=== PATIENT | male | born 1950 | race Caucasian/White ===

== ENCOUNTER → 2016-10-30 | Outpatient (CLI) | payer BC ==
[~2016-10-30] MED LIST: ATOR10TA82 PO; CLC/300 PO; HYDR25TA4 PO; LPT10 PO; METF500T PO; METO-217 PO; TPRSR/50 PO; WARF-284 PO; WARF7.5T PO
[2016-10-30 17:47] LABS: BLOOD UREA NITROGEN 17 mg/dl (7-18); BUN/CREATININE RATIO 15.5 (10-20); CALCIUM 8.7 mg/dl (8.5-10.1); CARBON DIOXIDE 30 mmol/L (21-32); CHLORIDE 102 mmol/L (98-107); GLUCOSE 117 mg/dl (70-99); POTASSIUM 3.7 mmol/L (3.5-5.1); SODIUM 141 mmol/L (136-145)
[2016-10-30 17:50] LABS: CHOLESTEROL 108 mg/dl (0-200); CHOLESTEROL/HDL RATIO 2.2; HDL CHOLESTEROL 49 mg/dl; LDL CHOLESTEROL CALCULATED 45 mg/dl; TRIGLYCERIDES 72 mg/dl (0-150); VERY LOW DENSITY LIPOPROT CALC 14 mg/dl
[2016-10-31 06:07] LABS: ESTIMATED AVERAGE GLUCOSE 154 mg/dl; HA1C FLAG Normal (Normal)
== END | disposition home or self-care (01) ==
LOC: C.LABPVFM 15:14
PROVIDERS: ATTEND Nurse Practitioner
DX: E11.9 Type 2 diabetes mellitus without complications (principal); I10 Essential (primary) hypertension

== ENCOUNTER 2017-02-13 15:11 | Emergency (ER) | payer BC ==
[~2017-02-13] VITALS: Ht 182.9 cm; Wt 98.0 kg
[~2017-02-13 15:11] MED LIST changes: -CLC/300 PO; -HYDR25TA4 PO; -LPT10 PO; -METF500T PO; -TPRSR/50 PO; -WARF7.5T PO
[2017-02-13 15:18] VITALS: TEMP 37; Ht 182.9 cm; Wt 98.0 kg
[2017-02-13] MEDS ORDERED: LIDOCAINE/EPINEPHRINE 1% 20 ML VIAL INFIL ONE (15:30)
[2017-02-13] MEDS ORDERED: DIPHTHERIA/TETANUS/PERTUSSIS 0.5 ML SYR/VIAL IM. ONE (15:30)
[2017-02-13] MEDS ORDERED: METF500T PO (15:41)
[2017-02-13] MEDS ORDERED: HYDR25TA4 PO (15:41)
[2017-02-13] MEDS ORDERED: WARF7.5T PO ×2 (16:01)
[2017-02-13] MEDS ORDERED: LPT10 PO (16:01)
[2017-02-13] MEDS ORDERED: TPRSR/50 PO (16:01)
[2017-02-13] MEDS ORDERED: CLC/300 PO (16:48)
--- NOTE | 2017-02-13 16:51 | EMERGENCY ROOM VISIT NOTE ---
ED Visit Note First contact with patient: 15:23 CHIEF COMPLAINT: Right hand laceration HISTORY OF PRESENT ILLNESS: Patient is a [id number] 66-year-old white male who presents to the emergency department for evaluation of a laceration to the dorsal aspect of his right hand. He was using a hob grinder to sharpen his lawnmower blade. He set the hob grinder down but the blade was still running, and he accidentally hit his right hand off of the running blade, causing the laceration described below. Patient is on Coumadin and has had difficulty getting the bleeding controlled. His INR is typically between 2 and 2.5. He denies weakness or numbness of the hand or fingers. REVIEW OF SYSTEMS: Review of systems as per HPI. All other systems reviewed were negative. At least 6 systems reviewed. PMH: Electronic medical records are reviewed and summarized as above/below. See Problem List. Patient was unsure of his last tetanus, but old records show that he got a tetanus when he had a scalp laceration in 2016. SOCIAL HISTORY: Patient lives at home with his . PHYSICAL EXAM: Vital Signs: Reviewed Nurse's notes. There is a 4 cm long laceration on the dorsal aspect of the right thumb, running horizontally, proximal to the MCP joint. There is brisk bleeding noted. The edges are gaping widely apart. There is no foreign material in the wound and it looks clean. No deep structures such as tendons or nerves are seen in the base of the wound, however wound is palpated, and first metacarpal is palpable in the base of the wound with forceps and with my finger, and there is a palpable defect consistent with the hob grinder blade. Extension and flexion of the thumb is full and strong one isolated at the MCP and IP joint. Sensation to pain and light touch is intact. EMERGENCY DEPARTMENT COURSE: The hand was prepped with Betadine and draped sterilely. 1% lidocaine with epinephrine was infiltrated into the wound. Wound is irrigated copiously with normal saline solution. I did use a blood pressure cuff on the forearm to act as a tourniquet for less than 10 minutes at 200 mmHg. This did allow for adequate hemostasis in order to close the wound. Wound was reapproximated using a combination of simple and vertical mattress 4- 0 nylon sutures, a total of 10 were used. Afterwards, there was some slight oozing from the suture line, but otherwise bleeding was controlled. X-rays of the right thumb were taken. Findings are as noted below, with bony laceration noted. Bulky, compressive dressing was applied. The patient's old records are reviewed. He has a history of a foot ulcer, which apparently developed into an osteomyelitis at one point. He reports a history of MRSA although none of our cultures documented such. Nonetheless, he will be placed on antibiotics given the nature of the laceration and the injury to the bone. He was given clindamycin 300 mg orally in the emergency department. He fortunately does not appear to have any evidence for extensor tendon, nerve or vascular injury. He was instructed on close follow-up with orthopedics and with the wound care center, as well as with his Coumadin clinic. RIGHT FINGER(S) MIN 2 VIEWS ROUTINE CLINICAL HISTORY: right thumb, lac to dorsal 1st metacarpal Right trauma COMPARISON: None. DISCUSSION: Soft tissue disruption adjacent to the first metacarpal. No focal bony laceration seen dorsally as well as dorsal laterally. No evidence of dislocation. Moderate degenerative change. The disc IMPRESSION: Soft tissue disruption combined with superficial focal bony lacerations of the mid shaft first metacarpal. Problem List Medical Problems: (1) Anticoagulants,Lt,Current Use Status: Chronic (2) Atrial Fibrillation Status: Chronic (3) Bleeding Status: Resolved (4) Diab Luly Wo Compl, Type Ii Or Unspec Type, Not Uncntrld Status: Chronic (5) Esophageal Reflux Status: Chronic (6) Hypertension Nos Status: Chronic (7) Laceration of scalp Status: Resolved (8) Osteomyelitis of right foot Status: Resolved Current/Historical Medications Scheduled Atorvastatin (Atorvastatin Calcium), 10 MG PO DAILY Clindamycin HCl (Clindamycin HCl), 1 CAP PO TID Hydrochlorothiazide (Hctz), 25 MG PO QAM Metformin Hcl (Glucophage), 500 MG PO UD Metoprolol Succinate (Metoprolol Succinate ER), 50 MG PO DAILY Warfarin Sodium (Coumadin), 3.75 MG PO [id number] Warfarin Sodium (Coumadin), 7.5 MG PO WK Allergies Coded Allergies: No Known Allergies (Verified , 11/30/15) Vital Signs Date Time Temp Pulse Resp B/P Pulse Ox O2 Delivery O2 Flow Rate FiO2 02/13/17 17:13 76 18 121/76 97 02/13/17 15:18 37.0 85 18 130/75 96 Room Air Medications Administered Medications (Trade) Dose Ordered Sig/Daniele Route Start Time Stop Time Status Last Admin Dose Admin Clindamycin HCl (Cleocin Cap) 300 mg ONE ONCE PO 02/13/17 17:00 02/13/17 17:01 DC 02/13/17 16:58 300 MG Departure Information Impression Primary Impression: Laceration of right thumb with complication Prescriptions Clindamycin HCl (Clindamycin HCl) 300 Mg Cap 1 CAP PO TID for 10 Days, #30 CAP Prov: Jania Guerra PA 02/13/17 Referrals Ana No C.R.N.P (PCP) Micah Joyner D.O. Patient Instructions My [facility] Additional Instructions Keep dressing placed today intact for 24 hours. May reinforce if necessary. Move the entire dressing tomorrow, clean the wound gently with mild soap and water and apply antibiotic ointment. Keep covered with a dressing until wound is no longer draining. Change the dressing daily, or more often if it becomes saturated or soiled. Suture removal in 14 days. Seek immediate medical attention for any signs of infection (increasing redness , swelling, drainage). Ice and elevate for swelling and pain. Tylenol 1000 mg every 6 hrs for pain. Clindamycin 300 m tablet 3 times daily for 10 days. Follow-up with [facility]-call their office tomorrow to make an appointment. Tell them you were seen in the emergency department and were instructed to call them for follow-up. Call the Coumadin clinic tomorrow. Tell them you were started on clindamycin for your injury and make arrangements to have your INR monitored. Follow-up with the wound care center next week for recheck of your laceration. They can remove your sutures in 2 weeks.
[2017-02-13] MEDS ORDERED: CLINDAMYCIN HCL 150 MG CAP PO ONE (17:00)
[2017-02-13 17:13] VITALS: BP 121/76; PULSE 76; O2SAT 97
--- NOTE | 2017-02-13 17:57 | EMERGENCY ROOM VISIT NOTE ---
ED Visit Note First contact with patient: 16:40 I have personally evaluated and examined this patient. I agree with assessment and plan of Erin Guerra PA-C.
== END 2017-02-13 17:14 | disposition home or self-care (01) ==
LOC: C.EDB 15:14 → C.EDD 17:14
DX: S61.011A Laceration without foreign body of right thumb without damage to nail, initial encounter (principal); W28.XXXA Contact with powered lawn mower, initial encounter; I48.91 Unspecified atrial fibrillation; E11.9 Type 2 diabetes mellitus without complications; I10 Essential (primary) hypertension; K21.9 Gastro-esophageal reflux disease without esophagitis; Z86.14 Personal history of Methicillin resistant Staphylococcus aureus infection; Z86.19 Personal history of other infectious and parasitic diseases; Z79.01 Long term (current) use of anticoagulants; Z79.84 Long term (current) use of oral hypoglycemic drugs; Z79.899 Other long term (current) drug therapy

== ENCOUNTER → 2017-05-07 | Outpatient (CLI) | payer BC ==
[~2017-05-07] MED LIST changes: -ATOR10TA82 PO; +HYDR25TA4 PO; +LPT10 PO; +METF500T PO; -METO-217 PO; +TPRSR/50 PO; -WARF-284 PO; +WARF7.5T PO
[2017-05-07 12:47] LABS: ESTIMATED AVERAGE GLUCOSE 166 mg/dl; HA1C FLAG Normal (Normal)
[2017-05-07 13:09] LABS: BLOOD UREA NITROGEN 18 mg/dl (7-18); CALCIUM 8.4 mg/dl (8.5-10.1); CARBON DIOXIDE 30 mmol/L (21-32); CHLORIDE 105 mmol/L (98-107); CREATININE 0.92 mg/dl (0.60-1.40); GLUCOSE 141 mg/dl (70-99); POTASSIUM 3.7 mmol/L (3.5-5.1); SODIUM 140 mmol/L (136-145)
== END | disposition home or self-care (01) ==
LOC: C.LABPVFM 09:01
PROVIDERS: ATTEND Nurse Practitioner
DX: I10 Essential (primary) hypertension (principal); E11.9 Type 2 diabetes mellitus without complications

== ENCOUNTER → 2017-07-09 | Outpatient (CLI) | payer BC ==
--- NOTE | 2017-07-09 12:47 | DIAGNOSTIC IMAGING REPORT ---
(RENAL)RETROPERITONEA COMP HISTORY: Hematuria R31.9 [id number] COMPARISON: None. FINDINGS: Right kidney: Maximum dimension 11.7 cm. No evidence for hydronephrosis. Normal corticomedullary differentiation and cortical thickness. Left kidney: Maximum dimension 10.9 cm. No evidence for hydronephrosis. Normal corticomedullary differentiation and cortical thickness. Bladder: No bladder wall thickening. The bilateral ureteral jets were identified. IMPRESSION: Normal study The above report was generated using voice recognition software. It may contain grammatical, syntax or spelling errors. Electronically signed by: Yuniel Viera M.D. 07/09/2017 12:45 PM Dictated Date/Time: 07/09/2017 12:45 PM
== END | disposition home or self-care (01) ==
LOC: C.ULTR 12:15
PROVIDERS: ATTEND Family Medicine
DX: R31.9 Hematuria, unspecified (principal)

== ENCOUNTER → 2017-11-07 | Outpatient (CLI) | payer BC ==
[2017-11-07 13:27] LABS: BLOOD UREA NITROGEN 21 mg/dl (7-18); CALCIUM 8.9 mg/dl (8.5-10.1); CARBON DIOXIDE 28 mmol/L (21-32); CREATININE 1.03 mg/dl (0.60-1.40); GLUCOSE 142 mg/dl (70-99); POTASSIUM 4.1 mmol/L (3.5-5.1); SODIUM 138 mmol/L (136-145)
[2017-11-07 13:32] LABS: CHOLESTEROL 108 mg/dl (0-200); LDL CHOLESTEROL CALCULATED 44 mg/dl
== END | disposition home or self-care (01) ==
LOC: C.LABPVFM 08:56
PROVIDERS: ATTEND Nurse Practitioner
DX: I48.91 Unspecified atrial fibrillation (principal); I10 Essential (primary) hypertension; E11.9 Type 2 diabetes mellitus without complications

== ENCOUNTER → 2018-03-17 | Outpatient (CLI) | payer BC ==
[2018-03-17 17:36] LABS: INR 2.3 (0.9-1.1)
== END | disposition home or self-care (01) ==
LOC: C.LABPVFM 12:02
PROVIDERS: ATTEND Nurse Practitioner
DX: Z79.01 Long term (current) use of anticoagulants (principal); Z51.81 Encounter for therapeutic drug level monitoring; R58 Hemorrhage, not elsewhere classified

== ENCOUNTER → 2018-03-17 | Outpatient (CLI) | payer BC ==
--- NOTE | 2018-03-17 13:34 | DIAGNOSTIC IMAGING REPORT ---
L VENOUS DOPP LOWER EXT UNILAT CLINICAL HISTORY: 67 years-old Male presenting with Z79.01,R22.40,R58. TECHNIQUE: Real-time grayscale and color and spectral Doppler ultrasound imaging of the veins of the left lower extremity was performed. Compression and augmentation were also utilized. COMPARISON: None. FINDINGS: Left: Common femoral vein: Patent. Greater saphenous vein: Patent. Deep femoral vein: Patent. Femoral vein: Patent. Popliteal vein: Patent. Calf veins: Patent. Other: At the site of clinical interest in the medial mid calf, a hypoechoic 2.0 x 0.8 x 1.4 cm mass appears to be centered in the subcutaneous fat. No hyperemia peripherally. No vascularity on color Doppler internally. IMPRESSION: 1. No evidence of deep venous thrombosis. 2. Hypoechoic mass in the medial mid calf at the site of clinical interest represent a hematoma. This could be followed to resolution with ultrasound as a soft tissue mass or lymph node is difficult to exclude but considered unlikely. Electronically signed by: Eddy Silveira M.D. 03/17/2018 1:33 PM Dictated Date/Time: 03/17/2018 1:31 PM
== END | disposition home or self-care (01) ==
LOC: C.ULTRBC 12:56
PROVIDERS: ATTEND Nurse Practitioner
DX: R58 Hemorrhage, not elsewhere classified (principal); R22.40 Localized swelling, mass and lump, unspecified lower limb; Z79.01 Long term (current) use of anticoagulants

== ENCOUNTER 2023-09-11 11:08 | Observation (INO) ==
[2023-09-11 11:56] LABS: Hematocrit (blood only) 47.2 % (42.0-52.0); Hemoglobin 16.1 g/dl (14.0-18.0); Mean Corpuscular Hemoglobin 29.8 pg (25.0-34.0); Mean Corpuscular Hgb Conc 34.1 g/dL (32.0-36.0); Mean Corpuscular Volume 87.2 fL (80.0-100.0); Mean Platelet Volume 9.3 fL (9.4-12.4); Platelet Count 201 K/uL (130-400); RDW Coefficient of Variation 13.7 % (11.5-14.5); RDW Standard Deviation 43.8 fL (36.4-46.3); Red Blood Count 5.41 M/uL (4.70-6.10); White Blood Count 6.23 K/ul (4.8-10.8)
[2023-09-11 12:12] LABS: Albumin Level 3.9 gm/dl (3.4-5.0); Bilirubin,Total 0.7 mg/dl (0.2-1.0); Calcium 8.8 mg/dl (8.6-10.3); Potassium 3.7 mmol/L (3.5-5.1)
[2023-09-11 12:18] LABS: Albumin Globulin Ratio 1.1 (0.9-2); BUN Creatinine Ratio 19.8 (10-20); Creatinine Clr Calc Pharmacy 86.6 ml/min; Est GFR (African American) 90.5 ml/min; Est GFR (Non-African American) 78.1 ml/min; Globulin 3.4 gm/dl (2.5-4.0); Total Protein 7.3 gm/dl (6.0-8.3)
[2023-09-11 12:25] LABS: INR 2.6 (0.9-1.1); Partial Thromboplastin Ratio 1.5; Prothrombin Time 26.7 Seconds (9.0-12.0)
[2023-09-11 12:30] LABS: Partial Thromboplastin Time 42.7 Seconds (21.0-31.0)
--- NOTE | 2023-09-11 14:40 | Emergency Department Note ---
ED Provider Note NAME: ANASTACIO LACKEY AGE: 73 SEX: M ARRIVES VIA: Walk-In INFORMANT: Patient ED PROVIDER(S): Hasmukh Amato MD CHIEF COMPLAINT: PLAN: Disposition: MEDICAL DECISION MAKING: Summary Triage Nursing notes reviewed and agree them. Prior/external medical records reviewed Vital Signs: reviewed Differential diagnosis: .dd ER treatment provided: See below. Diagnostics interpreted by me: ECG: None Cardiac Monitoring: An order for continuous cardiac monitoring was placed and demonstrated Laboratory studies: See below Imaging studies: See below Consultation(s): None HPI: ROS: See above HPI for pertinent positives & negatives. A total of 10 systems reviewed and were otherwise negative. VITALS:See Below PHYSICAL EXAMINATION: ED COURSE: Times/Reassessments: Procedures: None PDMP: Reviewed and no issues Critical Care: None Hasmukh Amato MD Past Med/Surg History Medical History Acquired deformity of right foot Fall from tree Smokeless tobacco use Surgical History No history of previous surgery Family History Sister Breast cancer Brother Myocardial infarction Denies family history of Ovarian cancer Prostate cancer Colorectal cancer Social History (Updated 07/18/23 @ 09:17 by Aminata Estes LPN) Smoking Status: Current every day smoker Tobacco Type: Smokeless Tobacco (Dip or Chew) Second Hand Exposure: No; Do You Dip or Chew Tobacco: No; Hx Alcohol Use: Yes Alcohol type: beer Alcohol Intake Frequency: Monthly or Less Hx Substance Use: No Preferred Language: Turkish Communication Ability: Effective Visual Impairment: Limited Hearing Ability: Normal Flatwork Feeder Required: No Beliefs That Will Affect Care: None marital status: Current Living Situation: Spouse current occupational status: retired How many Children do You have: 2 Feels Safe at Home: Yes Childhood Exposure to Second-Hand Smoke: No Diet: regular caffeine: Yes during the past year weight has: remained stable Dental Care, Regularly: No Physical Activity Frequency: Daily Seatbelt Use: always Sunscreen Use: Yes (sometimes ) Assistive Devices: Glasses Allergies Allergies Allergy/AdvReac Type Severity Reaction Status Date / Time No Known Allergies Allergy Verified 07/18/23 09:11 Home Meds Home Medications Medication Instructions Recorded Confirmed warfarin 7.5 mg tablet See Rx Instructions PO .COMPLEX 09/14/19 07/18/23 Previous Rx's Medication Instructions Recorded blood-glucose meter (ModulusTouch #1 ea 02/21/22 Ultra2 Meter) lancets 33 gauge (OneTouch Delica #100 ea 02/21/22 Lancets) atorvastatin 10 mg tablet 10 mg PO DAILY #90 tabs 10/26/22 lisinopril 5 mg tablet 5 mg PO DAILY #90 tabs 10/26/22 metoprolol succinate 50 mg 50 mg PO DAILY #90 tabs 10/26/22 tablet,extended release 24 hr lancets (Microlet Lancet) #100 ea 11/06/22 blood sugar diagnostic (ModulusTouch #100 ea 04/16/23 Ultra Test strips) metformin 500 mg tablet,extended 500 mg PO DAILY #90 tabs 04/16/23 release 24hr tamsulosin 0.4 mg capsule 0.4 mg PO DAILY #90 caps 04/16/23 clotrimazole 1 % topical cream 1 applic topical TID PRN rash #45 06/10/23 grams glimepiride 1 mg tablet 1 mg PO DAILY #90 tabs 07/18/23 dulaglutide 1.5 mg/0.5 mL 1.5 mg (0.5 mL) subcut Q7D 90 days 07/22/23 subcutaneous pen injector #6.5 mL Results & Data (ED) Vital Signs Vital Signs - 24 hr 09/11/23 11:14 Temperature 36.4 C L Temperature Source Temporal Artery Scan Pulse Rate 99 H Respiratory Rate 16 Blood Pressure 121/77 Blood Pressure Mean 91 Pulse Oximetry 96 Oxygen Delivery Method Room Air Sepsis Recent Fever Within 48 Hours Yes Sepsis New/Unexplained Change in Mental Status No Sepsis Action Taken by Nursing No Action Required Laboratory Data 09/11/23 11:45 09/11/23 11:45 Lab Results 09/11/23 Range/Units 11:45 WBC 6.23 (4.8-10.8) K/ul RBC 5.41 (4.70-6.10) M/uL Hgb 16.1 (14.0-18.0) g/dl Hct 47.2 (42.0-52.0) % MCV 87.2 (80.0-100.0) fL MCH 29.8 (25.0-34.0) pg MCHC 34.1 (32.0-36.0) g/dL RDW Std Deviation 43.8 (36.4-46.3) fL RDW Coeff of Giuseppe 13.7 (11.5-14.5) % Plt Count 201 (130-400) K/uL MPV 9.3 L (9.4-12.4) fL PT 26.7 H (9.0-12.0) Seconds INR 2.6 H (0.9-1.1) APTT 42.7 H* (21.0-31.0) Seconds PTT Ratio 1.5 Sodium 138 (136-145) mmol/L Potassium 3.7 (3.5-5.1) mmol/L Chloride 105 (98-107) mmol/L Carbon Dioxide 26 (21-32) mmol/L Anion Gap 7 (3-11) BUN 19 (6-23) mg/dl Creatinine 0.96 (0.6-1.4) mg/dl Est Cr Clr Drug Dosing 86.6 ml/min Est GFR ( Amer) 90.5 ml/min Est GFR (Non-Af Amer) 78.1 ml/min BUN/Creatinine Ratio 19.8 (10-20) Glucose 154 H (70-99(Fasting)) mg/dl Calcium 8.8 (8.6-10.3) mg/dl Total Bilirubin 0.7 (0.2-1.0) mg/dl AST 25 (13-39) U/L ALT 26 (7-52) U/L Alkaline Phosphatase 67 (34-104) U/L Total Protein 7.3 (6.0-8.3) gm/dl Albumin 3.9 (3.4-5.0) gm/dl Globulin 3.4 (2.5-4.0) gm/dl Albumin/Globulin Ratio 1.1 (0.9-2) Discharge Plan Visit Data Chief Complaint: Diarrhea Stated Complaint: DIARRHEA,BLOODY/DARK STOOL,DOC REF ED Provider: Hasmukh Amato Forms Stand Alone Forms: My [facility] Prescriptions Prescriptions: No Action (DME) blood-glucose meter [OneTouch Ultra2 Meter] Misc See Rx Instructions .Route Qty: 1 0RF Rx Instructions: test 1-2 times daily (DME) lancets [OneTouch Delica Lancets] 33 gauge misc See Rx Instructions .Route Qty: 100 0RF Rx Instructions: test 1-2 times daily atorvastatin 10 mg tablet 10 mg PO DAILY Qty: 90 3RF lisinopril 5 mg tablet 5 mg PO DAILY Qty: 90 3RF metoprolol succinate 50 mg tablet extended release 24 hr 50 mg PO DAILY Qty: 90 3RF (DME) lancets [Microlet Lancet] Misc See Rx Instructions .ROUTE .MEDSUPPLY Qty: 100 5RF Rx Instructions: As directed 2 times a day dulaglutide 1.5 mg/0.5 mL pen injector 1.5 mg subcut Q7D 90 Days Qty: 6.5 3RF (DME) OneTouch Ultra Test Strip See Rx Instructions .Route Qty: 100 3RF Rx Instructions: test 1-2 times daily E11.9 tamsulosin 0.4 mg capsule 0.4 mg PO DAILY Qty: 90 3RF metformin 500 mg tablet extended release 24hr 500 mg PO DAILY Qty: 90 3RF glimepiride 1 mg tablet 1 mg PO DAILY Qty: 90 3RF warfarin 7.5 mg tablet See Rx Instructions PO .COMPLEX Rx Instructions: PO ; MANAGED BY DR. REBOLLEDO clotrimazole 1 % cream 1 applic topical TID PRN (Reason: rash) Qty: 45 2RF Referrals Referrals: Leonides Arriaga DO [Primary Care Provider] -
--- NOTE | 2023-09-11 15:39 | Electrocardiogram Report ---
Test Reason : Blood Pressure : / mmHG Vent. Rate : 090 BPM Atrial Rate : 000 BPM P-R Int : 000 ms QRS Dur : 084 ms QT Int : 336 ms P-R-T Axes : 000 005 -08 degrees QTc Int : 411 ms Atrial fibrillation Abnormal ECG When compared with ECG of 22-FEB-2012 07:19, Atrial fibrillation has replaced Sinus rhythm Confirmed by Franco Velasquez ([id number]) on 09/11/2023 3:38:48 PM Referred By: Confirmed By:Franco Velasquez
[2023-09-11] MEDS ORDERED: PANTOprazole 80 MG in DEXTROSE 5% 100 ML IV ONE (15:55)
[2023-09-11] MEDS ORDERED: PANTOPRAZOLE BOLUS/DRIP IV STA (15:55)
[2023-09-11] MEDS ORDERED: PANTOprazole 40 MG in DEXTROSE 5% MINI-B 100 ML IV SCH (16:15)
[2023-09-11 16:53] LABS: Adenovirus PCR Not Detected (NotDetected); Bordetella parapertussis PCR Not Detected (NotDetected); Bordetella pertussis PCR Not Detected (NotDetected); Chlamydia pneumoniae PCR Not Detected (NotDetected); Coronavirus 229E PCR Not Detected (NotDetected); Coronavirus CoV-2 (COVID19)PCR Not Detected (NotDetected); Coronavirus HKU1 PCR Not Detected (NotDetected); Coronavirus NL63 PCR Not Detected (NotDetected); Coronavirus OC43PCR Not Detected (NotDetected); Human Metapneumovirus PCR Not Detected (NotDetected); Influenza A PCR Not Detected (NotDetected); Influenza B PCR Not Detected (NotDetected); Mycoplasma pneumoniae PCR Not Detected (NotDetected); Parainfluenza Virus 1 PCR Not Detected (NotDetected); Parainfluenza Virus 2 PCR Not Detected (NotDetected); Parainfluenza Virus 3 PCR Not Detected (NotDetected); Parainfluenza Virus 4 PCR Not Detected (NotDetected); Respiratory Syncytial VirusPCR Not Detected (NotDetected); Rhinovirus/Enterovirus PCR Not Detected (NotDetected)
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
[2023-09-11 17:32] LABS: Adenovirus F 40/41 PCR Not Detected (NotDetected); Astrovirus PCR Not Detected (NotDetected); Cryptosporidium PCR Not Detected (NotDetected); Cyclospora cayetanensis PCR Not Detected (NotDetected); Entamoeba histolytica PCR Not Detected (NotDetected); Enteroaggregative E.coli(EAEC) Not Detected (NotDetected); Enteropathogenic E.coli (EPEC) Not Detected (NotDetected); Enterotoxigenic E.coli (ETEC) Not Detected (NotDetected); Giardia lamblia PCR Not Detected (NotDetected); Norovirus GI/GII PCR Not Detected (NotDetected); Plesiomonas shigelloides PCR Not Detected (NotDetected); Rotavirus A PCR Not Detected (NotDetected); Salmonella PCR Not Detected (NotDetected); Sapovirus PCR Not Detected (NotDetected); Shiga-like Toxin E.coli (STEC) Not Detected (NotDetected); Shigella/Enteroinvasive E.coli Not Detected (NotDetected); Vibrio cholerae PCR Not Detected (NotDetected); Vibrio species PCR Not Detected (NotDetected); Yersinia enterocolitica PCR Not Detected (NotDetected)
[2023-09-11 17:34] LABS: Campylobacter PCR DETECTED (NotDetected)
[2023-09-11 18:43] LABS: Hematocrit (blood only) 46.9 % (42.0-52.0); Hemoglobin 16.1 g/dl (14.0-18.0); Mean Corpuscular Hemoglobin 30.2 pg (25.0-34.0); Mean Corpuscular Hgb Conc 34.3 g/dL (32.0-36.0); Mean Platelet Volume 9.5 fL (9.4-12.4); Platelet Count 218 K/uL (130-400); RDW Coefficient of Variation 13.6 % (11.5-14.5); Red Blood Count 5.33 M/uL (4.70-6.10); White Blood Count 7.44 K/ul (4.8-10.8)
--- NOTE | 2023-09-11 21:13 | Emergency Department Note ---
History of Present Illness General Chief complaint: Diarrhea Stated complaint: DIARRHEA,BLOODY/DARK STOOL,DOC REF Time Seen by Provider: 09/11/23 14:37 History of Present Illness Provider Complaint: + melena Onset (ago): 1 day(s) Relieved By: + none Exacerbated By: + bowel movement Context: + anticoagulant use (Coumadin); no hemorrhoids, no rectal trauma or no alcohol abuse Associated symptoms: + abdominal pain and + nausea; no fever or no chills HPI Narrative: Diarrhea for 1 week. Home Medications Medication Instructions Recorded Confirmed Type warfarin 7.5 mg tablet See Rx Instructions PO .COMPLEX 09/14/19 09/11/23 History blood-glucose meter (OneTouch #1 ea 02/21/22 07/18/23 Rx Ultra2 Meter) lancets 33 gauge (OneTouch Delica #100 ea 02/21/22 07/18/23 Rx Lancets) lancets (Microlet Lancet) #100 ea 11/06/22 07/18/23 Rx blood sugar diagnostic (OneTouch #100 ea 04/16/23 07/18/23 Rx Ultra Test strips) clotrimazole 1 % topical cream 1 applic topical TID PRN rash #45 06/10/23 09/11/23 Rx grams atorvastatin 10 mg tablet 10 mg PO QAM 09/11/23 09/11/23 History glimepiride 1 mg tablet 1 mg PO QAM 09/11/23 09/11/23 History lisinopril 5 mg tablet 5 mg PO QAM 09/11/23 09/11/23 History metformin 500 mg tablet,extended 500 mg PO QAM 09/11/23 09/11/23 History release 24hr metoprolol succinate 50 mg 50 mg PO QAM 09/11/23 09/11/23 History tablet,extended release 24 hr tamsulosin 0.4 mg capsule 0.4 mg PO HS 09/11/23 09/11/23 History Allergies Allergy/AdvReac Type Severity Reaction Status Date / Time No Known Allergies Allergy Verified 09/11/23 15:50 Past Med/Surg History Medical History Traumatic subarachnoid hemorrhage Hypertension Type 2 diabetes mellitus Fall from tree Acquired deformity of right foot S/P combine accident years ago. Smokeless tobacco use Surgical History No history of previous surgery Family History Sister Breast cancer Brother Myocardial infarction Denies family history of Ovarian cancer Prostate cancer Colorectal cancer Social History Smoking Status: Current every day smoker Tobacco Type: Smokeless Tobacco (Dip or Chew) Second Hand Exposure: No; Do You Dip or Chew Tobacco: No; Hx Alcohol Use: Yes Alcohol type: beer Alcohol Intake Frequency: Monthly or Less Hx Substance Use: No Preferred Language: Mohawk Communication Ability: Effective Visual Impairment: Limited Hearing Ability: Normal Stabilizer Operator Required: No Beliefs That Will Affect Care: None marital status: Current Living Situation: Spouse current occupational status: retired How many Children do You have: 2 Feels Safe at Home: Yes Childhood Exposure to Second-Hand Smoke: No Diet: regular caffeine: Yes during the past year weight has: remained stable Dental Care, Regularly: No Physical Activity Frequency: Daily Seatbelt Use: always Sunscreen Use: Yes (sometimes ) Assistive Devices: Glasses Physical Exam 2 Vital Signs: Vital Signs - 24 hr 09/11/23 11:14 09/11/23 14:44 09/11/23 15:35 Temperature 36.4 C L Temperature Source Temporal Artery Sc an Pulse Rate 99 H 62 Pulse Rate [Right Finger] 83 Respiratory Rate 16 16 Respiratory Effort / Characteristics Non-Labored Respiratory Depth Normal Blood Pressure 121/77 Blood Pressure [Ri ght Arm] 128/81 Blood Pressure Anai n 91 Blood Pressure Anai n [Right Arm] 96 Pulse Oximetry 96 96 Oxygen Delivery Me thod Room Air Room Air Sepsis Recent Feve r Within 48 Hours Yes Sepsis New/Unexpla ined Change in Men artis Status No Sepsis Action Take n by Nursing No Action Required 09/11/23 15:37 09/11/23 16:39 Temperature Temperature Source Pulse Rate 91 H Pulse Rate [Right Finger] 74 Respiratory Rate 16 Respiratory Effort / Characteristics Respiratory Depth Blood Pressure Blood Pressure [Ri ght Arm] 134/62 Blood Pressure Anai n Blood Pressure Anai n [Right Arm] 86 Pulse Oximetry 97 Oxygen Delivery Me thod Room Air Sepsis Recent Feve r Within 48 Hours Sepsis New/Unexpla ined Change in Men artis Status Sepsis Action Take n by Nursing Physical Exam: Physical Exam GENERAL: She is oriented to person, place, and time. She appears well-developed and well-nourished. She does not appear distressed. HENT: Exam performed. -Head: Normocephalic and atraumatic. -Right Ear: External ear normal. No mastoid erythema -Left Ear: External ear normal. No mastoid erythema -Mouth/Throat: The oropharynx is clear and moist. No trismus in the jaw. No dental abscesses or uvula swelling. No oropharyngeal exudate or tonsillar abscesses. EYES: Conjunctivae and EOM are normal.Right eye exhibits no discharge. Left eye exhibits no discharge. No scleral icterus. NECK: Normal range of motion. Neck supple. No JVD present. No tracheal deviation and normal range of motion present. CV: Normal rate, regular rhythm, normal heart sounds and intact distal pulses. There is no peripheral edema. Palpable radial pulses bue. PULM/CHEST: Effort normal and breath sounds normal. No respiratory distress. No stridor. She has no wheezes. She has no rales. -Chest Wall: She exhibits no tenderness. ABD: The abdomen is soft. Bowel sounds are normal. She has no distension. No mass is present. There is no tenderness. There is no rebound, no guarding, no Chowdary's sign and no tenderness at McBurney's point. Rovsig negative Rectal: Melanotic stool Hemoccult positive. MUSC/SKEL: Normal range of motion. There is no peripheral edema, tenderness or deformity. NEURO: Motor and sensation grossly intact. SKIN: Skin is warm and dry. She is not diaphoretic. PSYCH: She has a normal mood and affect. Behavior is normal. Judgment and thought content normal. Course Course 1437: The patient was evaluated in room A11A. A complete history and physical exam was performed Administered Medications Discontinued Medications Pantoprazole Sodium 80 mg/ (Dextrose) 120 mls @ 400 mls/hr IV NOW ONE Stop: 09/11/23 16:12 Last Infusion: 09/11/23 17:26 Dose: Infused Documented By: Admin: 09/11/23 16:46 Dose: 400 mls/hr Documented By: ASW Pantoprazole Sodium 40 mg/ (Dextrose) 100 mls @ 20 mls/hr IV Q5H [facility] Stop: 10/11/23 16:14 Last Admin: 09/11/23 18:22 Dose: Not Given Documented By: ASW Pantoprazole Sodium (Pantoprazole Bolus/Drip) 1 each IV NOW STA Stop: 09/11/23 15:56 Last Admin: 09/11/23 16:48 Dose: Not Given Documented By: QUENTINW Medical Decision Making Laboratory Data Attestation: I reviewed the patient's lab results. 09/11/23 18:20 09/11/23 11:45 Lab Results 09/11/23 09/11/23 09/11/23 Range/Units 11:45 15:35 16:04 WBC 6.23 (4.8-10.8) K/ul RBC 5.41 (4.70-6.10) M/uL Hgb 16.1 (14.0-18.0) g/dl Hct 47.2 (42.0-52.0) % MCV 87.2 (80.0-100.0) fL MCH 29.8 (25.0-34.0) pg MCHC 34.1 (32.0-36.0) g/dL RDW Std Deviation 43.8 (36.4-46.3) fL RDW Coeff of Giuseppe 13.7 (11.5-14.5) % Plt Count 201 (130-400) K/uL MPV 9.3 L (9.4-12.4) fL PT 26.7 H (9.0-12.0) Seconds INR 2.6 H (0.9-1.1) APTT 42.7 H* (21.0-31.0) Seconds PTT Ratio 1.5 Sodium 138 (136-145) mmol/L Potassium 3.7 (3.5-5.1) mmol/L Chloride 105 (98-107) mmol/L Carbon Dioxide 26 (21-32) mmol/L Anion Gap 7 (3-11) BUN 19 (6-23) mg/dl Creatinine 0.96 (0.6-1.4) mg/dl Est Cr Clr Drug Dosing 86.6 ml/min Est GFR ( Amer) 90.5 ml/min Est GFR (Non-Af Amer) 78.1 ml/min BUN/Creatinine Ratio 19.8 (10-20) Glucose 154 H (70-99(Fasting)) mg/dl Calcium 8.8 (8.6-10.3) mg/dl Total Bilirubin 0.7 (0.2-1.0) mg/dl AST 25 (13-39) U/L ALT 26 (7-52) U/L Alkaline Phosphatase 67 (34-104) U/L Total Protein 7.3 (6.0-8.3) gm/dl Albumin 3.9 (3.4-5.0) gm/dl Globulin 3.4 (2.5-4.0) gm/dl Albumin/Globulin Ratio 1.1 (0.9-2) POC Stool Occult Blood (Negative) Stl C. cayetanensis PCR Not Detected (NotDetected) Stool Rotavirus A PCR Not Detected (NotDetected) Stl Adenov F 40/41 PCR Not Detected (NotDetected) Stool Astrovirus (PCR) Not Detected (NotDetected) Stool Campylobacter PCR DETECTED A* (NotDetected) Stl C. diff Tox B Gene Negative Cdiff Gene (Neg) Stool Cryptosporidium PCR Not Detected (NotDetected) Stl E.coli Shiga Tox PCR Not Detected (NotDetected) Stl Enterotoxigenic E PCR Not Detected (NotDetected) Stool EPEC (PCR) Not Detected (NotDetected) Stool EAEC (PCR) Not Detected (NotDetected) Stl E. histolytica PCR Not Detected (NotDetected) Stool Giardia Lamblia PCR Not Detected (NotDetected) Stool Salmonella PCR Not Detected (NotDetected) Stool Sapovirus (PCR) Not Detected (NotDetected) Stl P. shigelloides PCR Not Detected (NotDetected) Stl Shigella/EIEC PCR Not Detected (NotDetected) St Y.enterocolitica PCR Not Detected (NotDetected) Stool Vibrio (PCR) Not Detected (NotDetected) Stl Vibrio cholerae PCR Not Detected (NotDetected) Stl Norovirus GI/GII PCR Not Detected (NotDetected) Adenovirus (PCR) Not Detected (NotDetected) B. pertussis DNA (PCR) Not Detected (NotDetected) B.parapertussis DNA PCR Not Detected (NotDetected) C. pneumoniae DNA (PCR) Not Detected (NotDetected) Coronavirus OC43 (PCR) Not Detected (NotDetected) Coronavirus HKU1 (PCR) Not Detected (NotDetected) Coronavirus 229E (PCR) Not Detected (NotDetected) SARS-CoV-2 (PCR) Not Detected (NotDetected) Coronavirus NL63 (PCR) Not Detected (NotDetected) Human Metapneumovir PCR Not Detected (NotDetected) Influenza Type A (PCR) Not Detected (NotDetected) Influenza Type B (PCR) Not Detected (NotDetected) M. pneumoniae (PCR) Not Detected (NotDetected) Parainfluenza 1 (PCR) Not Detected (NotDetected) Parainfluenza 2 (PCR) Not Detected (NotDetected) Parainfluenza 3 (PCR) Not Detected (NotDetected) Parainfluenza 4 (PCR) Not Detected (NotDetected) RSV (PCR) Not Detected (NotDetected) Entero/Rhino (PCR) Not Detected (NotDetected) 09/11/23 Range/Units 16:07 WBC (4.8-10.8) K/ul RBC (4.70-6.10) M/uL Hgb (14.0-18.0) g/dl Hct (42.0-52.0) % MCV (80.0-100.0) fL MCH (25.0-34.0) pg MCHC (32.0-36.0) g/dL RDW Std Deviation (36.4-46.3) fL RDW Coeff of Giuseppe (11.5-14.5) % Plt Count (130-400) K/uL MPV (9.4-12.4) fL PT (9.0-12.0) Seconds INR (0.9-1.1) APTT (21.0-31.0) Seconds PTT Ratio Sodium (136-145) mmol/L Potassium (3.5-5.1) mmol/L Chloride (98-107) mmol/L Carbon Dioxide (21-32) mmol/L Anion Gap (3-11) BUN (6-23) mg/dl Creatinine (0.6-1.4) mg/dl Est Cr Clr Drug Dosing ml/min Est GFR ( Amer) ml/min Est GFR (Non-Af Amer) ml/min BUN/Creatinine Ratio (10-20) Glucose (70-99(Fasting)) mg/dl Calcium (8.6-10.3) mg/dl Total Bilirubin (0.2-1.0) mg/dl AST (13-39) U/L ALT (7-52) U/L Alkaline Phosphatase (34-104) U/L Total Protein (6.0-8.3) gm/dl Albumin (3.4-5.0) gm/dl Globulin (2.5-4.0) gm/dl Albumin/Globulin Ratio (0.9-2) POC Stool Occult Blood Positive A (Negative) Stl C. cayetanensis PCR (NotDetected) Stool Rotavirus A PCR (NotDetected) Stl Adenov F 40/41 PCR (NotDetected) Stool Astrovirus (PCR) (NotDetected) Stool Campylobacter PCR (NotDetected) Stl C. diff Tox B Gene (Neg) Stool Cryptosporidium PCR (NotDetected) Stl E.coli Shiga Tox PCR (NotDetected) Stl Enterotoxigenic E PCR (NotDetected) Stool EPEC (PCR) (NotDetected) Stool EAEC (PCR) (NotDetected) Stl E. histolytica PCR (NotDetected) Stool Giardia Lamblia PCR (NotDetected) Stool Salmonella PCR (NotDetected) Stool Sapovirus (PCR) (NotDetected) Stl P. shigelloides PCR (NotDetected) Stl Shigella/EIEC PCR (NotDetected) St Y.enterocolitica PCR (NotDetected) Stool Vibrio (PCR) (NotDetected) Stl Vibrio cholerae PCR (NotDetected) Stl Norovirus GI/GII PCR (NotDetected) Adenovirus (PCR) (NotDetected) B. pertussis DNA (PCR) (NotDetected) B.parapertussis DNA PCR (NotDetected) C. pneumoniae DNA (PCR) (NotDetected) Coronavirus OC43 (PCR) (NotDetected) Coronavirus HKU1 (PCR) (NotDetected) Coronavirus 229E (PCR) (NotDetected) SARS-CoV-2 (PCR) (NotDetected) Coronavirus NL63 (PCR) (NotDetected) Human Metapneumovir PCR (NotDetected) Influenza Type A (PCR) (NotDetected) Influenza Type B (PCR) (NotDetected) M. pneumoniae (PCR) (NotDetected) Parainfluenza 1 (PCR) (NotDetected) Parainfluenza 2 (PCR) (NotDetected) Parainfluenza 3 (PCR) (NotDetected) Parainfluenza 4 (PCR) (NotDetected) RSV (PCR) (NotDetected) Entero/Rhino (PCR) (NotDetected) ECG Data Attestation: I personally reviewed and interpreted this ECG as follows: Rate (beats per minute): 90 Rhythm: atrial fibrillation Findings: no ST depression, no ST elevation or no prolonged QT MDM Narrative Cardiac monitoring: An order was placed for continuous cardiac monitoring. The monitor shows a rate of 90 with sinus rhythm interpreted by me Vital signs stable. INR therapeutic. Hemoglobin stable. Given the patient is having active melanotic stools with diarrhea Hemoccult positive and has an INR of 2.6 [facility] Stool cultures are pending. Dr. Saini's team will be notified. Impression & Plan Acute GI bleeding Discharge Plan Visit Data Chief Complaint: Diarrhea Stated Complaint: DIARRHEA,BLOODY/DARK STOOL,DOC REF ED Provider: Santiago Schmitt Discharge Problem: Acute GI bleeding Patient Disposition: Admitted As Inpatient
[2023-09-11] MEDS ORDERED: GLUCOSE 40% GEL 15 GM TUBE PO PRN (21:22)
[2023-09-11] MEDS ORDERED: TAMSULOSIN HCL 0.4 MG CAP PO SCH (21:22)
[2023-09-11] MEDS ORDERED: GLUCOSE 10 TAB/TUBE PO PRN (21:22)
[2023-09-11] MEDS ORDERED: CARBOHYDRATES FOR HYPOGLYCEMIA PO PRN (21:22)
[2023-09-11] MEDS ORDERED: DEXTROSE 50% 50 ML SYRINGE IV PRN (21:22)
[2023-09-11] MEDS ORDERED: GLUCAGON FOR INJ 1 MG VIAL SQ PRN (21:22)
[2023-09-11] MEDS: INSULIN ASPART PER UNIT CHARGE SC SCH (21:34)
[2023-09-12 00:39] LABS: Hematocrit (blood only) 44.5 % (42.0-52.0); Hemoglobin 15.2 g/dl (14.0-18.0); Mean Corpuscular Hemoglobin 30.1 pg (25.0-34.0); Mean Corpuscular Hgb Conc 34.2 g/dL (32.0-36.0); Mean Corpuscular Volume 88.1 fL (80.0-100.0); Mean Platelet Volume 9.4 fL (9.4-12.4); Platelet Count 202 K/uL (130-400); RDW Coefficient of Variation 13.6 % (11.5-14.5); RDW Standard Deviation 43.9 fL (36.4-46.3); Red Blood Count 5.05 M/uL (4.70-6.10); White Blood Count 7.69 K/ul (4.8-10.8)
[2023-09-12 07:23] LABS: Hemoglobin 15.6 g/dl (14.0-18.0); Mean Corpuscular Hemoglobin 30.5 pg (25.0-34.0); Mean Corpuscular Hgb Conc 34.7 g/dL (32.0-36.0); Mean Corpuscular Volume 87.9 fL (80.0-100.0); Mean Platelet Volume 9.2 fL (9.4-12.4); Platelet Count 219 K/uL (130-400); RDW Coefficient of Variation 13.4 % (11.5-14.5); RDW Standard Deviation 43.2 fL (36.4-46.3); Red Blood Count 5.12 M/uL (4.70-6.10)
[2023-09-12 07:39] LABS: Estimated Average Glucose 169 mg/dl; Hemoglobin A1C 7.5 % (4.5-5.6)
--- NOTE | 2023-09-12 08:08 | Hospitalist Progress Note ---
Date of Service September 12, 2023 Assessment & Plan (1) Campylobacter diarrhea: (2) Heme positive stool: (3) Atrial fibrillation: (4) Type 2 diabetes mellitus: Plan Wilbur Temple is a 73 year old male who presents to the ER with nausea and diarrhea since for 1.5 weeks [09/01), Comes to ER due to black stool Campylobacter diarrhea Patient reports this has been improving therefore defer antibiotic treatment. Heme positive stool: Unclear if black stool due to pepto-bismol taken on Saturday with heme positive stool from recent Campylobacter infection vs UGI bleed. Hold warfarin but no anemia to warrant vitamin K. Trend CBC. If stable can likely be discharged home tomorrow. Pantoprazole 40mg IV BID Recommend repeat as outpatient once diarrheal illness completely resolved to consider colonoscopy if remains positive. HGb 15.6 Atrial fibrillation: hold warfarin as above for anticoagulation Continue rate control with metoprolol Type 2 diabetes mellitus: Hemoglobin A1C 8.8 in March Taking metformin and glimepiride as outpatient Hold metformin while having diarrhea While inpatient will use Novolog: --Goal BSG Range: Low 110 mg/dL, High 140 mg/dL --Correction Factor: 45 mg/dL/unit --Carbohydrate ratio = 15 g/unit --BSGs ACHS if eating, q6h if npo VTE Prophylaxis - therapeutic on warfarin Diet - T2DM Disposition - observation to med/tele Admission and Anticipated Discharge Date Admission Date: September 11, 2023 Sarah Temple is a 73 year old male who presents to the ER with nausea and diarrhea since for 1.5 weeks [09/01]. He reports initially having chills with profuse diarrhea x6/day. The diarrhea is now improving and no longer having chills. Currently only having x2/day. Associated nausea but no vomiting. Tolerating full diet. Main reason for coming to the ER today is he started having black stool that started yesterday. He has never had this before. He denies any history of GI bleed (however chronic reflux esophagitis noted on problem list). He denies any heartburn or epigastric pain. He notes ventral abdominal cramping at the beginning of the illness although none for the last week. He talked to a nurse at his doctors office who recommended he comes to the ER for evaluation. He takes warfarin for chronic atrial fibrillation. His stool was heme positive in the ER. He notably took pepto-bismol for the first time on Saturday. Review of Systems Review of Systems: All systems reviewed & are unremarkable except as noted in HPI & below Physical Exam Constitutional: WD/WN, vitals as above Eyes: + anicteric sclerae; normal pupil size ENMT: external ear and nose normal, oropharynx normal Neck: trachea midline, no thyromegaly Respiratory: normal respiratory effort, lungs clear to auscultation Cardiovascular: Rate/Rhythm: regular rate and + irregularly irregular Heart Sounds: no murmur Extremities: normal capillary refill; no calf tenderness and no pedal edema Gastrointestinal (Abdomen): normal bowel sounds, soft, nontender, no hepatosplenomegaly Musculoskeletal: no cyanosis or clubbing, extremities motor strength 5/5 Skin: no rashes, warm and dry Neurologic: moves all extremities and awake; not confused Psychiatric: A+Ox3, euthymic affect Results & Data Results & Data Vital Signs (Past 12 Hours) Vital Signs Pulse Pulse Resp BP Pulse Ox O2 Del Method 09/12/23 07:02 100 H 09/12/23 01:33 81 20 126/79 96 Room Air 09/12/23 01:33 95 H 23 126/79 96 Room Air 09/12/23 00:00 85 09/11/23 20:20 85 18 145/92 H 96 Room Air Resident Activity Tracking Resident Involvement: Resident Care Provided Care Provided: Adult Hospital Medicine
[2023-09-12] MEDS: INSULIN ASPART PER UNIT CHARGE SC SCH (08:30)
[2023-09-12] MEDS ORDERED: METOPROLOL SUCC 50MG EXT REL TAB PO SCH (09:00)
[2023-09-12] MEDS ORDERED: lisinopril 5 MG TAB PO SCH (09:00)
[2023-09-12] MEDS ORDERED: ATORVASTATIN 10 MG TAB PO SCH (09:00)
--- NOTE | 2023-09-12 09:24 | Discharge Summary ---
Date of Service September 12, 2023 Admission HPI Per Admitting Provider Wilbur Temple is a 73 year old male who presents to the ER with nausea and diarrhea since for 1.5 weeks [09/01]. He reports initially having chills with profuse diarrhea x6/day. The diarrhea is now improving and no longer having chills. Currently only having x2/day. Associated nausea but no vomiting. Tolerating full diet. Main reason for coming to the ER today is he started having black stool that started yesterday. He has never had this before. He denies any history of GI bleed (however chronic reflux esophagitis noted on problem list). He denies any heartburn or epigastric pain. He notes ventral abdominal cramping at the beginning of the illness although none for the last week. He talked to a nurse at his doctors office who recommended he comes to the ER for evaluation. He takes warfarin for chronic atrial fibrillation. His stool was heme positive in the ER. He notably took pepto-bismol for the first time on Saturday. Admission Exam Per Admitting Provider Constitutional: WD/WN, vitals as above Eyes: + anicteric sclerae; normal pupil size ENMT: external ear and nose normal, oropharynx normal Neck: trachea midline, no thyromegaly Respiratory: normal respiratory effort, lungs clear to auscultation Cardiovascular: Rate/Rhythm: regular rate and + irregularly irregular Heart Sounds: no murmur Extremities: normal capillary refill; no calf tenderness and no pedal edema Gastrointestinal (Abdomen): normal bowel sounds, soft, nontender, no hepatosplenomegaly Musculoskeletal: no cyanosis or clubbing, extremities motor strength 5/5 Skin: no rashes, warm and dry Neurologic: moves all extremities and awake; not confused Psychiatric: A+Ox3, euthymic affect Principal Diagnosis Campylobacter diarrhea Discharge Exam Constitutional WD/WN, vitals as above Respiratory normal respiratory effort, lungs clear to auscultation Cardiovascular RRR, no murmur, no edema Rate/Rhythm: regular rate and regular rhythm Gastrointestinal (Abdomen) normal bowel sounds, soft, nontender, no hepatosplenomegaly Skin no rashes, warm and dry Discharge Data Allergies Allergy/AdvReac Type Severity Reaction Status Date / Time No Known Allergies Allergy Verified 09/11/23 15:50 Consultations 09/11/23 15:55 ED Decision to Admit Stat Ordered Studies Labs 09/11/23 09/11/23 09/11/23 11:45 15:35 16:04 WBC 6.23 RBC 5.41 Hgb 16.1 Hct 47.2 MCV 87.2 MCH 29.8 MCHC 34.1 RDW Std Deviation 43.8 RDW Coeff of Giuseppe 13.7 Plt Count 201 MPV 9.3 L PT 26.7 H INR 2.6 H APTT 42.7 H* PTT Ratio 1.5 Sodium 138 Potassium 3.7 Chloride 105 Carbon Dioxide 26 Anion Gap 7 BUN 19 Creatinine 0.96 Est Cr Clr Drug Dosing 86.6 Est GFR ( Amer) 90.5 Est GFR (Non-Af Amer) 78.1 BUN/Creatinine Ratio 19.8 Glucose 154 H POC Glucose Estimat Average Glucose Hemoglobin A1c Calcium 8.8 Total Bilirubin 0.7 AST 25 ALT 26 Alkaline Phosphatase 67 Total Protein 7.3 Albumin 3.9 Globulin 3.4 Albumin/Globulin Ratio 1.1 POC Stool Occult Blood Stl C. cayetanensis PCR Not Detected Stool Rotavirus A PCR Not Detected Stl Adenov F 40/41 PCR Not Detected Stool Astrovirus (PCR) Not Detected Stool Campylobacter PCR DETECTED A* Stl C. diff Tox B Gene Negative Cdiff Gene Stool Cryptosporidium PCR Not Detected Stl E.coli Shiga Tox PCR Not Detected Stl Enterotoxigenic E PCR Not Detected Stool EPEC (PCR) Not Detected Stool EAEC (PCR) Not Detected Stl E. histolytica PCR Not Detected Stool Giardia Lamblia PCR Not Detected Stool Salmonella PCR Not Detected Stool Sapovirus (PCR) Not Detected Stl P. shigelloides PCR Not Detected Stl Shigella/EIEC PCR Not Detected St Y.enterocolitica PCR Not Detected Stool Vibrio (PCR) Not Detected Stl Vibrio cholerae PCR Not Detected Stl Norovirus GI/GII PCR Not Detected Adenovirus (PCR) Not Detected B. pertussis DNA (PCR) Not Detected B.parapertussis DNA PCR Not Detected C. pneumoniae DNA (PCR) Not Detected Coronavirus OC43 (PCR) Not Detected Coronavirus HKU1 (PCR) Not Detected Coronavirus 229E (PCR) Not Detected SARS-CoV-2 (PCR) Not Detected Coronavirus NL63 (PCR) Not Detected Human Metapneumovir PCR Not Detected Influenza Type A (PCR) Not Detected Influenza Type B (PCR) Not Detected M. pneumoniae (PCR) Not Detected Parainfluenza 1 (PCR) Not Detected Parainfluenza 2 (PCR) Not Detected Parainfluenza 3 (PCR) Not Detected Parainfluenza 4 (PCR) Not Detected RSV (PCR) Not Detected Entero/Rhino (PCR) Not Detected 09/11/23 09/11/23 09/11/23 16:07 18:20 21:28 WBC 7.44 RBC 5.33 Hgb 16.1 Hct 46.9 MCV 88.0 MCH 30.2 MCHC 34.3 RDW Std Deviation 44.0 RDW Coeff of Giuseppe 13.6 Plt Count 218 MPV 9.5 PT INR APTT PTT Ratio Sodium Potassium Chloride Carbon Dioxide Anion Gap BUN Creatinine Est Cr Clr Drug Dosing Est GFR ( Amer) Est GFR (Non-Af Amer) BUN/Creatinine Ratio Glucose POC Glucose 119 H Estimat Average Glucose Hemoglobin A1c Calcium Total Bilirubin AST ALT Alkaline Phosphatase Total Protein Albumin Globulin Albumin/Globulin Ratio POC Stool Occult Blood Positive A Stl C. cayetanensis PCR Stool Rotavirus A PCR Stl Adenov F PCR Stool Astrovirus (PCR) Stool Campylobacter PCR Stl C. diff Tox B Gene Stool Cryptosporidium PCR Stl E.coli Shiga Tox PCR Stl Enterotoxigenic E PCR Stool EPEC (PCR) Stool EAEC (PCR) Stl E. histolytica PCR Stool Giardia Lamblia PCR Stool Salmonella PCR Stool Sapovirus (PCR) Stl P. shigelloides PCR Stl Shigella/EIEC PCR St Y.enterocolitica PCR Stool Vibrio (PCR) Stl Vibrio cholerae PCR Stl Norovirus GI/GII PCR Adenovirus (PCR) B. pertussis DNA (PCR) B.parapertussis DNA PCR C. pneumoniae DNA (PCR) Coronavirus OC43 (PCR) Coronavirus HKU1 (PCR) Coronavirus 229E (PCR) SARS-CoV-2 (PCR) Coronavirus NL63 (PCR) Human Metapneumovir PCR Influenza Type A (PCR) Influenza Type B (PCR) M. pneumoniae (PCR) Parainfluenza 1 (PCR) Parainfluenza 2 (PCR) Parainfluenza 3 (PCR) Parainfluenza 4 (PCR) RSV (PCR) Entero/Rhino (PCR) 09/12/23 09/12/23 09/12/23 00:24 07:11 07:40 WBC 7.69 7.50 RBC 5.05 5.12 Hgb 15.2 15.6 Hct 44.5 45.0 MCV 88.1 87.9 MCH 30.1 30.5 MCHC 34.2 34.7 RDW Std Deviation 43.9 43.2 RDW Coeff of Giuseppe 13.6 13.4 Plt Count 202 219 MPV 9.4 9.2 L PT INR APTT PTT Ratio Sodium Potassium Chloride Carbon Dioxide Anion Gap BUN Creatinine Est Cr Clr Drug Dosing Est GFR ( Amer) Est GFR (Non-Af Amer) BUN/Creatinine Ratio Glucose POC Glucose 115 H Estimat Average Glucose 169 Hemoglobin A1c 7.5 H Calcium Total Bilirubin AST ALT Alkaline Phosphatase Total Protein Albumin Globulin Albumin/Globulin Ratio POC Stool Occult Blood Stl C. cayetanensis PCR Stool Rotavirus A PCR Stl Adenov F 40/41 PCR Stool Astrovirus (PCR) Stool Campylobacter PCR Stl C. diff Tox B Gene Stool Cryptosporidium PCR Stl E.coli Shiga Tox PCR Stl Enterotoxigenic E PCR Stool EPEC (PCR) Stool EAEC (PCR) Stl E. histolytica PCR Stool Giardia Lamblia PCR Stool Salmonella PCR Stool Sapovirus (PCR) Stl P. shigelloides PCR Stl Shigella/EIEC PCR St Y.enterocolitica PCR Stool Vibrio (PCR) Stl Vibrio cholerae PCR Stl Norovirus GI/GII PCR Adenovirus (PCR) B. pertussis DNA (PCR) B.parapertussis DNA PCR C. pneumoniae DNA (PCR) Coronavirus OC43 (PCR) Coronavirus HKU1 (PCR) Coronavirus 229E (PCR) SARS-CoV-2 (PCR) Coronavirus NL63 (PCR) Human Metapneumovir PCR Influenza Type A (PCR) Influenza Type B (PCR) M. pneumoniae (PCR) Parainfluenza 1 (PCR) Parainfluenza 2 (PCR) Parainfluenza 3 (PCR) Parainfluenza 4 (PCR) RSV (PCR) Entero/Rhino (PCR) Hospital Course (1) Campylobacter diarrhea: (2) Heme positive stool: (3) Atrial fibrillation: (4) Type 2 diabetes mellitus: Gerald Temple is a 73 year old male who presents to the ER with nausea and diarrhea for 1.5 weeks [09/01]. He reports initially having chills with profuse diarrhea x6/day. Stool biofire done in ED tested positive for Campylobacter. Admitted for observation due to having black stool that started 2 days ago and positive stool occult blood. Hemoglobin stable at 15.6, no exchange mechanic night. The diarrhea is now improving and no longer having chills. Currently only having x2/day. Patient tolerating well diet, and no abdominal pain other than with BMs. UGI bleed seems unlikely due to no change on Hgb or BUN. Patient was discharge today with instructions to follow up with PCP. Recommend repeat as outpatient once diarrheal illness completely resolved to consider colonoscopy if remains positive. Total Time Total Time Spent Total Time Spent (In Minutes): see attending attestation Discharge Plan Discharge Items Patient Disposition: Home - Self-Care Reason For Visit: ACUTE GI BLEED Discharge Diagnosis: Diarrhea - Campylobacter diarrhea Condition on Discharge: Good Activity: Per Instructions section Non-emergency contact: Primary Care Provider Call non-emergency contact if: you have any medication questions, your pain is worsening and your temperature is above 101 Follow-up/Referrals: Leonides Arriaga DO [Primary Care Provider] - Diet: Carb Consistent or DM2 Addtl Attending Provider Instructions: You were admitted to the hospital for concerns of gastrointestinal bleeding due to black stool and a heme positive stool. You were admitted for observation. Your hemoglobin is stable at 15.6 stable. We recommended to repeat the occult blood test on your stool after the diarrhea illness resolved. A discharge summary will be sent to your primary care physician to ensure continuity of care. Please bring this discharge summary with you to your next office appointment so that your provider can review it at that time. Follow-up appointments: Make a follow-up appointment with your PCP within the next week. It is very important that you follow up with them shortly after discharge from the hospital. Medications: Your medication list has been reviewed and reconciled upon discharge to ensure accuracy and continuity of care. An updated list of all your medications is included with your hospital discharge paperwork. Please review this list closely, and make note of any changes. Take your medications as instructed; do not skip a dose of your medicines. Make sure all of your doctors know every medicine you are taking (including [id number] medicines, vitamins, and supplements). Call your primary care provider before taking any new medicines (including over- the- counter medicines, vitamins, and supplements), because some of these may interact with your current medications, or may make your symptoms worse. Tell your primary care provider if you cannot afford your medications. CALL 911 OR GO TO THE EMERGENCY DEPARTMENT if you experience any of the following: Sudden, severe abdominal pain or nausea/vomiting Severe chest pain, or chest pain that radiates (moves) to your jaw or arm Sudden, severe shortness of breath or difficulty breathing Thank you for allowing us to participate in your care. Pending Studies at Discharge: No Stand-Alone Forms: My [facility], Smoking Cessation Medications and DC Order Prescriptions: Continued (DME) blood-[place] [facility] [place] .[place] Qty: 1 0RF Rx Instructions: test 1-2 times daily (DME) lancets [OneTouch Delica Lancets] 33 gauge misc See Rx Instructions .Route Qty: 100 0RF Rx Instructions: test 1-2 times daily (DME) lancets [Microlet Lancet] [facility] See Rx Instructions .ROUTE .MEDSUPPLY Qty: 100 5RF Rx Instructions: As directed 2 times a day (DME) OneTouch Ultra Test Strip See Rx Instructions .Route Qty: 100 3RF Rx Instructions: test 1-2 times daily E11.9 warfarin 7.5 mg tablet See Rx Instructions PO .COMPLEX Rx Instructions: Take 7.5mg by mouth on Sat/Sat and 3.75mg on Sat/Sat///Fri (Per pt he takes this medication in the morning) clotrimazole 1 % cream 1 applic topical TID PRN (Reason: rash) Qty: 45 2RF atorvastatin 10 mg tablet 10 mg PO QAM metoprolol succinate 50 mg tablet extended release 24 hr 50 mg PO QAM glimepiride 1 mg tablet 1 mg PO QAM tamsulosin 0.4 mg capsule 0.4 mg PO HS lisinopril 5 mg tablet 5 mg PO QAM metformin 500 mg tablet extended release 24hr 500 mg PO QAM Discharge Orders: Discharge Order (Routine); Ordered 09/12/23 Ordered By: Patricio Cullen Admission Data Admit Date/Time: 09/11/23 16:44 Attending Provider: Mahogany Santana Admit Provider: Dom Saini Primary Care Provider: Leonides Arriaga Other Providers: Dom Saini Other Interventions: Discharge Summary Assessment (RN) Last Done: 09/12/23 09:35 Supervising Physician Co-Signing Physician Notes Resident Physician Supervision Note: I independently interviewed and examined the patient and verified the hutson history and physical, reviewed labs and image studies and agree with resident findings and care plan. Resident Activity Tracking Resident Involvement: Resident Care Provided Care Provided: Adult [facility]
== END 2023-09-12 09:35 | disposition home or self-care (01) ==
LOC: ED 11:08 → EDINP 11:08 → SUATTDRO 16:44 → EDINP 21:22